=== PATIENT | male | born 1955 | race Caucasian/White ===

== ENCOUNTER 2016-07-26 02:47 | Emergency (ER) | payer BC ==
[~2016-07-26] VITALS: Ht 177.8 cm; Wt 90.7 kg
== END 2016-07-26 04:26 | disposition short-term general hospital (02) ==
LOC: ER 02:47
PROC: 2Y41X5Z Packing of Nasal Region using Packing Material (ICD-10-PCS; principal; 2016-07-26)
DX: R04.0 Epistaxis (principal); I10 Essential (primary) hypertension; Z87.891 Personal history of nicotine dependence; Z98.890 Other specified postprocedural states

== ENCOUNTER 2016-10-06 05:10 | Emergency (ER) | payer BC ==
[~2016-10-06] VITALS: Ht 175.3 cm; Wt 86.6 kg
[2016-10-06] MEDS ORDERED: PRINIVIL20 MG PO (05:30)
[2016-10-06] MEDS ORDERED: HYDROCHLOROTH12.5 MG PO (05:31)
[2016-10-06] MEDS ORDERED: TOPROL XL50 MG PO (05:33)
== END 2016-10-06 06:32 | disposition short-term general hospital (02) ==
LOC: ER 05:10
DX: I10 Essential (primary) hypertension (principal); R94.4 Abnormal results of kidney function studies; I25.10 Atherosclerotic heart disease of native coronary artery without angina pectoris; Z79.82 Long term (current) use of aspirin; Z79.899 Other long term (current) drug therapy; Z87.891 Personal history of nicotine dependence